=== PATIENT | male | born 2000 | race Caucasian/White ===

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

== ENCOUNTER 2025-06-21 18:33 | Emergency (ER) | payer BC ==
[2025-06-21 18:40] VITALS: BP 149/83; PULSE 68
== END 2025-06-21 20:04 | disposition home or self-care (01) ==
LOC: JP.ED 18:33
DX: S60.454A Superficial foreign body of right ring finger, initial encounter (principal); Z86.16 Personal history of COVID-19; W45.8XXA Other foreign body or object entering through skin, initial encounter
CPT/HCPCS: 64450; 99283; A9270; J2003; 99282